=== PATIENT | male | born 1965 | race Caucasian/White ===

== ENCOUNTER 2024-01-02 15:53 | Emergency (ER) | payer SELFPAY ==
[2024-01-02] VITALS (9 sets, daily range): BP systolic 153–202; BP diastolic 80–112; PULSE 85–112; RESP 17–24; TEMP 36.4–36.9; O2SAT 93–95
--- NOTE | ~2024-01-02 | CT_ITS ---
EXAMINATION: CT brain wo con DATE: 01/02/2024 18:13 INDICATION: Headache. TECHNIQUE: Computed tomography (CT) of the head was performed without intravenous contrast. The mA wa s adjusted according to patient size. Iterative reconstruction technique was employed. The dose-lengt h product was 681.00 mGy-cm. COMPARISON: None. FINDINGS: There is no intracranial hemorrhage, acute infarction, or abnormal intracranial mass lesion . The ventricles are normal in size. There is mucosal thickening in the paranasal sinuses. The orbi ts are normal. The mastoid air cells are normal. There is a 6 mm mass in the superior scalp, likely b enign. IMPRESSION: 1. Normal brain. Reviewed, dictated and finalized at location A. MOTIVE SALES SPECIALIST IMPRESSION: 1. Normal brain.
--- NOTE | ~2024-01-02 | XR_ITS ---
EXAMINATION: XR chest 2V DATE: 01/02/2024 16:37 INDICATION: Dyspnea. TECHNIQUE: Frontal and lateral views of the chest were obtained. COMPARISON: None. FINDINGS: A calcified right lung nodule is consistent with old granulomatous disease. There is mild a telectasis at left lung base. No pleural effusion or pneumothorax. The heart size is normal. 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 There is mild chronic anterior wedging of multiple vertebral bodies. IMPRESSION: 1. Mild atelectasis at left lung base. Reviewed, dictated and finalized at location A. TRE ARTS PROFESSOR
--- NOTE | ~2024-01-02 | CT_ITS ---
EXAMINATION: CTA chest PE protocol DATE: 01/02/2024 18:17 GAMING DIRECTOR INDICATION: Pulmonary embolus suspected clinically TECHNIQUE: Computed tomographic angiography (CTA) of the chest was performed with 100 mL Omnipaque-35 0 intravenous contrast. The dose-length product was 953.68 mGy-cm. Maximum intensity projection 3D-re constructions of the aorta and other arteries were constructed by the technologist on a separate work station. COMPARISON: None. FINDINGS: No filling defects within the main or proximal pulmonary arteries. The main pulmonary artery is not enlarged. The thoracic aorta is unremarkable. Calcified granuloma within the base of the right upper lobe. The remainder of the lungs are clear. The heart is of normal size, without pericardial effusion. Within the upper abdomen: The bilateral adrenal glands are unremarkable. No hydronephrosis is present within the bilateral kidneys. No pancreatic ductal dilatation is present. Fecal stasis within the colon. Small hiatal hernia. IMPRESSION: No pulmonary embolus. No aortic dissection. The lungs are clear. Reviewed, dictated and finalized at location A. NG DIRECTOR
--- NOTE | 2024-01-02 16:07 | ECG_ITS ---
Test Date: 2024-01-02 16:10:15 Measurements Intervals Powell Rate: 98 P: 59 HI: 165 QRS: 63 QRSD: 64 T: 75 QT: 310 QTc: 397 Interpretive Statements SINUS RHYTHM ANTEROSEPTAL INFARCT, AGE INDETERMINATE BORDERLINE T WAVE ABNORMALITY- HIGH LATERAL LEADS BASELINE ARTIFACT- I, III, AVR, AVL, V1 ABNORMAL ECG No previous ECG available for comparison Electronically Signed On 01-02-2024 18:40:01 HIDE SPREADER by Melvin Rousseau D.O.
[2024-01-02 16:47] LABS: Basophils Absolute Auto 0.1 K/mm3 (0.0-0.1); Eosinophils Absolute Auto 0.7 K/mm3 (0-0.3); Eosinophils Percent Auto 6.6 % (0-4.4); Hematocrit 46.9 % (42.0-52.0); Hemoglobin 16.9 g/dL (14.0-18.0); Immature Granulocyte Absolute 0.06 K/mm3 (0.00-0.031); Immature Granulocyte Percent A 0.6 % (0-0.5); Lymphocytes Absolute Auto 2.01 K/mm3 (0.9-3.2); Lymphocytes Percent Auto 20.4 % (18.3-44.2); Mean Corpuscular Hemoglobin 31.8 pg (26-34); Mean Corpuscular Volume 88.2 fl (80-100); Mean Platelet Volume 9.6 fl (7.4-10.4); Monocytes Absolute Auto 0.8 K/mm3 (0.1-0.6); Monocytes Percent Auto 7.9 % (2.6-8.5); Neutrophils Absolute Auto 6.3 K/mm3 (1.3-6.7); Neutrophils Percent Auto 63.5 % (45.5-73.1); Platelet Count Result 303 k/mm3 (150-375); Red Blood Count 5.32 M/mm3 (4.6-6.20); Red Cell Distribution Width 11.9 % (11.5-14.5); White Blood Count 9.9 K/mm3 (4.5-10.0)
--- NOTE | 2024-01-02 16:52 | ED_ITS ---
HPI - SOB/Dyspnea General Chief Complaint: Recheck/Abnormal Lab/Rx <Krystal Edwards APRN - Last Filed: 01/02/24 16:59> Stated Complaint: I have symptoms of high blood pressure <Krystal Edwards APRN - Last Filed: 01/02/24 16:59> Time Seen by Provider: 01/02/24 16:30 <Krystal Edwards APRN - Last Filed: 01/02/24 16:59> Focused HPI: patient is a 58-year-old male who presents to the ER with concerns with increased blood pressure. He reports this morning he woke up with a dull pulsating headache and felt as though his blood pressure was elevated. patient reports a history of COPD and has had increased shortness of breath. He reports 1 week ago he was seen for a COPD exacerbation and was put on a Z-Jeremie, but states they did not put me on a steroid this time and I think I need steroids. Patient reports he has a history of heavy alcohol use but had not used in 2 months until last night. He takes metoprolol for high blood pressure at home and took his medicine this morning. GENERAL: Well-appearing, well-nourished, and in mild distress d/t dyspnea. HEAD: Normocephalic, atraumatic. CHEST: Bilateral lower lobe wheezing. ?Mild tachypnea. No respiratory distress. HEART: Mild tachycardia, regular rhythm. NEURO: ?Alert and oriented x3. Patient screened in triage and initial orders placed.? ?Additional care and disposition to be based upon?diagnostic testing and treatment. <Krystal Edwards APRN - Last Filed: 01/02/24 16:59> History of Present Illness HPI Narrative: I agree with the above HPI <Reji Nicholas MD - Last Filed: 01/02/24 21:54> Related Data Allergies/Adverse Reactions: Allergies Allergy/AdvReac Type Severity Reaction Status Date / Time Penicillins Allergy Unknown Verified 01/02/24 15:54 <Krystal Edwards APRN - Last Filed: 01/02/24 16:59> Review of Systems Review of Systems: All systems reviewed & are unremarkable except as noted in HPI and below <Reji Nicholas MD - Last Filed: 01/02/24 21:54> Exam Narrative: APPEARANCE: Well appearing, no pain, no distress, well-nourished. HEAD: normocephalic, atraumatic. EYES: PERRLA/EOMI, conjunctivae clear. NOSE: Normal no drainage EARS:TMS clear with good light reflex. THROAT: Pharynx clear, no exudate. NECK: Supple. No adenopathy, no masses. RESPIRATORY: Airway patent, respirations nonlabored. Clear to auscultation bilaterally, no rales, rhonchi, wheezing. CARDIOVASCULAR: Regular rate and rhythm without murmurs rubs or gallops. ABDOMINAL: Soft, nontender, nondistended, normal bowel sounds MUSCULOSKELETAL: Moves all extremities. Strength/ROM intact, No edema, No calf tenderness. NEURO: Alert. Cranial nerves II through XII intact. Good gait. Good coordination SKIN: Warm, dry. Normal Color <Reji Nicholas MD - Last Filed: 01/02/24 21:54> Course Vital Signs Vital signs: Vital Signs Temperature 97.5 F L 01/02/24 15:58 Pulse Rate 94 01/02/24 15:58 Respiratory Rate 20 01/02/24 15:58 Blood Pressure 202/112 H 01/02/24 15:58 Pulse Oximetry 93 01/02/24 15:58 Oxygen Delivery Room Air 01/02/24 15:58 Temperature 98.4 F 01/02/24 19:50 Pulse Rate 85 01/02/24 21:44 Respiratory Rate 18 01/02/24 21:44 Blood Pressure 153/80 H 01/02/24 21:44 Pulse Oximetry 94 01/02/24 21:44 Oxygen Delivery Room Air 01/02/24 15:58 <Krystal Edwards APRN - Last Filed: 01/02/24 16:59> Vital Signs Temperature 97.5 F L 01/02/24 15:58 Pulse Rate 94 01/02/24 15:58 Respiratory Rate 20 01/02/24 15:58 Blood Pressure 202/112 H 01/02/24 15:58 Pulse Oximetry 93 01/02/24 15:58 Oxygen Delivery Room Air 01/02/24 15:58 Temperature 98.4 F 01/02/24 19:50 Pulse Rate 85 01/02/24 21:44 Respiratory Rate 18 01/02/24 21:44 Blood Pressure 153/80 H 01/02/24 21:44 Pulse Oximetry 94 01/02/24 21:44 Oxygen Delivery Room Air 01/02/24 15:58 <Reji Nicholas MD - Last Filed: 01/02/24 21:54> MDM - SOB/Dyspnea MDM Narrative Medical decision making narrative: 58-year-old male presents emergency department for evaluation for hypertension and headache. Patient was afebrile with no leukocytosis and hemoglobin of 16.9, patient has an INR of 1.0, no significant abnormalities on the patient's CMP elevated glucose of 257, patient is a known diabetic. Patient had negative serial troponins and BNP that was not significantly elevated. Patient was negative for influenza RSV and for COVID. Chest x-ray shows mild atelectasis, head CT showed no acute intracranial abnormality. And CTA chest showed clear lungs with no evidence of pulmonary embolism. Patient did feel improved as his blood pressure came down spontaneously. To help his blood pressure additionally he was treated with 2 doses of IV hydralazine and his evening dose of p.o. metoprolol. Patient was also treated with a breathing treatment. Patient suspects he is having a COPD exacerbation so he was additionally started on antibiotics and steroids. Patient states he does have albuterol with him. Patient states he is going to be traveling back home to his primary care physician tomorrow. All questions concerns were addressed. <Reji Nicholas MD - Last Filed: 01/02/24 21:54> Differential Diagnosis Differential diagnosis: Likely acute exacerbation of chronic obstructive airways disease, community acquired pneumonia and other <Reji Nicholas MD - Last Filed: 01/02/24 21:54> Lab Data Attestation: I reviewed the patient's lab results. <Reji Nicholas MD - Last Filed: 01/02/24 21:54> Result diagrams: 01/02/24 16:21 01/02/24 16:21 <Krystal Edwards APRN - Last Filed: 01/02/24 16:59> Labs: Lab Results 01/02/24 01/02/24 Range/Units 16:21 17:49 WBC 9.9 (4.5-10.0) K/mm3 RBC 5.32 (4.6-6.20) M/mm3 Hgb 16.9 (14.0-18.0) g/dL Hct 46.9 (42.0-52.0) % MCV 88.2 (80-100) fl MCH 31.8 (26-34) pg MCHC 36.0 (32-36) g/dl RDW 11.9 (11.5-14.5) % Plt Count 303 (150-375) k/mm3 MPV 9.6 (7.4-10.4) fl Immature Gran % (Auto) 0.6 H (0-0.5) % Neut % (Auto) 63.5 (45.5-73.1) % Lymph % (Auto) 20.4 (18.3-44.2) % Payne % (Auto) 7.9 (2.6-8.5) % Eos % (Auto) 6.6 H (0-4.4) % Baso % (Auto) 1.0 (0.2-1.2) % Lymph # (Auto) 2.01 (0.9-3.2) K/mm3 Payne # (Auto) 0.8 H (0.1-0.6) K/mm3 Eos # (Auto) 0.7 H (0-0.3) K/mm3 Baso # (Auto) 0.1 (0.0-0.1) K/mm3 Abs Immat Gran (auto) 0.06 H (0.00-0.031) K/mm3 Absolute Neuts (auto) 6.3 (1.3-6.7) K/mm3 Absolute Nucleated RBC 0.000 (0.0-0.012) K/mm3 Nucleated RBC % 0.0 (0.0-0.2) % PT 13.2 (11.1-14.7) Seconds INR 1.0 APTT 24.1 (22.3-36.8) Seconds Sodium 137 (137-145) mmol/L Potassium 4.5 (3.4-5.0) mmol/L Chloride 106 (98-107) mmol/L Carbon Dioxide 22 (22-30) mmol/L Anion Gap 9 (4-12) mmol/L BUN 16 (9-20) mg/dL Creatinine 0.80 (0.7-1.3) mg/dL Estim Creat Clear Calc 112 ml/min Estimated GFR > 60 (59 - ) Glucose 257 H (65-110) mg/dL Lactic Acid 1.2 (0.7-2.0) mmol/L Calcium 9.0 (8.4-10.2) mg/dL Total Bilirubin 0.6 (0.2-1.3) mg/dL AST 30 (17-59) U/L ALT 46 (6-50) U/L Alkaline Phosphatase 142 H (38-126) U/L Troponin I 0.014 (0.000-0.034) ng/mL NT-Pro-B Natriuret Pep 88 (19.9-100) pg/mL Total Protein 7.0 (6.3-8.2) g/dL Albumin 4.0 (3.5-5.1) g/dL Influenza A (RT-PCR) Negative (Negative) Influenza B (RT-PCR) Negative (Negative) RSV (RT-PCR) Negative (Negative) SARS-CoV-2 RNA (RT-PCR) Negative (Negative) <Krystal Edwards, BOOKING SUPERVISOR - Last Filed: 01/02/24 16:59> Lab Results 01/02/24 01/02/24 Range/Units 16:21 17:49 WBC 9.9 (4.5-10.0) K/mm3 RBC 5.32 (4.6-6.20) M/mm3 Hgb 16.9 (14.0-18.0) g/dL Hct 46.9 (42.0-52.0) % MCV 88.2 (80-100) fl MCH 31.8 (26-34) pg MCHC 36.0 (32-36) g/dl RDW 11.9 (11.5-14.5) % Plt Count 303 (150-375) k/mm3 MPV 9.6 (7.4-10.4) fl Immature Gran % (Auto) 0.6 H (0-0.5) % Neut % (Auto) 63.5 (45.5-73.1) % Lymph % (Auto) 20.4 (18.3-44.2) % Payne % (Auto) 7.9 (2.6-8.5) % Eos % (Auto) 6.6 H (0-4.4) % Baso % (Auto) 1.0 (0.2-1.2) % Lymph # (Auto) 2.01 (0.9-3.2) K/mm3 Payne # (Auto) 0.8 H (0.1-0.6) K/mm3 Eos # (Auto) 0.7 H (0-0.3) K/mm3 Baso # (Auto) 0.1 (0.0-0.1) K/mm3 Abs Immat Gran (auto) 0.06 H (0.00-0.031) K/mm3 Absolute Neuts (auto) 6.3 (1.3-6.7) K/mm3 Absolute Nucleated RBC 0.000 (0.0-0.012) K/mm3 Nucleated RBC % 0.0 (0.0-0.2) % PT 13.2 (11.1-14.7) Seconds INR 1.0 APTT 24.1 (22.3-36.8) Seconds Sodium 137 (137-145) mmol/L Potassium 4.5 (3.4-5.0) mmol/L Chloride 106 (98-107) mmol/L Carbon Dioxide 22 (22-30) mmol/L Anion Gap 9 (4-12) mmol/L BUN 16 (9-20) mg/dL Creatinine 0.80 (0.7-1.3) mg/dL Estim Creat Clear Calc 112 ml/min Estimated GFR > 60 (59 - ) Glucose 257 H (65-110) mg/dL Lactic Acid 1.2 (0.7-2.0) mmol/L Calcium 9.0 (8.4-10.2) mg/dL Total Bilirubin 0.6 (0.2-1.3) mg/dL AST 30 (17-59) U/L ALT 46 (6-50) U/L Alkaline Phosphatase 142 H (38-126) U/L Troponin I 0.014 (0.000-0.034) ng/mL NT-Pro-B Natriuret Pep 88 (19.9-100) pg/mL Total Protein 7.0 (6.3-8.2) g/dL Albumin 4.0 (3.5-5.1) g/dL Influenza A (RT-PCR) Negative (Negative) Influenza B (RT-PCR) Negative (Negative) RSV (RT-PCR) Negative (Negative) SARS-CoV-2 RNA (RT-PCR) Negative (Negative) <Reji Nicholas MD - Last Filed: 01/02/24 21:54> Imaging Data Radiologist's impression: Impressions Chest X-Ray 01/02/24 16:41 IMPRESSION: 1. Mild atelectasis at left lung base. Head CT 01/02/24 18:15 IMPRESSION: 1. Normal brain. Chest CTA 01/02/24 18:17 IMPRESSION: No pulmonary embolus. No aortic dissection. The lungs are clear. <Reji Nicholas MD - Last Filed: 01/02/24 21:54> Discharge Plan Discharge Clinical Impression: COPD exacerbation, HTN (hypertension) <Krystal Edwards APRN - Last Filed: 01/02/24 16:59> Patient Disposition: Home, Self-Care <Krystal Edwards APRN - Last Filed: 01/02/24 16:59> Condition: Stable <Krystal Edwards APRN - Last Filed: 01/02/24 16:59> Instructions: Antibiotic Form, COPD (Chronic Obstructive Pulmonary Disease) (DC), Hypertension (ED) <Krystal Edwards APRN - Last Filed: 01/02/24 16:59> Additional Instructions: Prednisone as directed until completed, antibiotic as directed until completed. Have close follow-up with your primary care physician. <Krystal Edwards APRN - Last Filed: 01/02/24 16:59> Prescriptions: New prednisone 50 mg tablet 50 mg PO DAILY 5 Days Qty: 5 0RF azithromycin 250 mg tablet See Rx Instructions .ROUTE .COMPLEX Qty: 6 0RF Rx Instructions: For 250 mg dose pack: take 500 mg today (day 1), then 250 mg for 4 days (days 2-5) <Krystal Edwards APRN - Last Filed: 01/02/24 16:59> Follow-up/Referrals: PHYSICIAN NOT ON STAFF,NONSTAFF [Non-Staff] - <Krystal Edwards APRN - Last Filed: 01/02/24 16:59>
[2024-01-02 17:00] LABS: Partial Thromboplastin Time 24.1 Seconds (22.3-36.8); Prothrombin Time 13.2 Seconds (11.1-14.7)
[2024-01-02 17:02] LABS: Alanine Aminotransferase 46 U/L (6-50); Alkaline Phosphatase 142 U/L (38-126); Anion Gap 9 mmol/L (4-12); Aspartate Amino Transferase 30 U/L (17-59); Bilirubin,Total 0.6 mg/dL (0.2-1.3); Blood Urea Nitrogen 16 mg/dL (9-20); Carbon Dioxide 22 mmol/L (22-30); Chloride 106 mmol/L (98-107); Estimated CRCL calculation 112 ml/min; Estimated Glomerular Filt Rate > 60; Glucose 257 mg/dL (65-110); Potassium 4.5 mmol/L (3.4-5.0); Sodium 137 mmol/L (137-145)
[2024-01-02 17:14] LABS: NT Pro B Type Natriuretic Pept 88 pg/mL (19.9-100); Troponin I 0.014 ng/mL (0.000-0.034)
[2024-01-02] MEDS: IPRATROPIUM 0.5 MG/ALBUTEROL SULFATE 2.5 MG AMPUL.NEB 3 ML INHALATION (17:44)
[2024-01-02 18:15] LABS: Lactic Acid Reflex 1.2 mmol/L (0.7-2.0)
[2024-01-02 18:44] LABS: Influenza A QL RT-PCR Negative (Negative); Influenza B QL RT-PCR Negative (Negative); RSV RNA, RT-PCR Negative (Negative); SARS-CoV-2 RNA PCR Negative (Negative)
[2024-01-02] MEDS: METOPROLOL TARTRATE 50 MG TAB PO (20:03)
[2024-01-02] MEDS: hydrALAZINE HCL 20 MG/ML VIAL 10 MG IV PUSH ×2 (20:04→21:01)
[2024-01-02] MEDS: predniSONE 20 MG TABLET 40 MG PO (20:19)
[2024-01-02] MEDS: ALBUTEROL SULFATE NEB 2.5 MG/3 ML INH INHALATION (21:09)
== END 2024-01-02 21:46 | disposition home or self-care (01) ==
PROVIDERS: Emergency Medicine; Registered Nurse; Emergency Provider Emergency Medicine
DX: J44.1 Chronic obstructive pulmonary disease with (acute) exacerbation (principal); I10 Essential (primary) hypertension; Z20.822 Contact with and (suspected) exposure to COVID-19
CPT/HCPCS: 36415; 70450; 71046; 71275; 80053; 83605; 83880; 84484; 85025; 85610; 85730; 87040; 87637; 93005; 94640; 96374; 96376; 99284; A9270; J0360; J7512; Q9967